=== PATIENT | female | born 1945 | race Caucasian/White ===

== ENCOUNTER 2017-10-18 15:09 | Inpatient (IN) | payer OTHER ==
[~2017-10-18] VITALS: Ht 160 cm; Wt 108.0 kg
[2017-10-18 16:49] LABS: ABSOLUTE BASOPHIL COUNT 0 /CUMM (0.0-0.2); ABSOLUTE EOSINOPHIL COUNT 0.1 /CUMM (0.0-0.7); ABSOLUTE GRANULOCYTE CT 6.4 /CUMM (1.4-6.5); ABSOLUTE MONOCYTE COUNT 0.7 /CUMM (0.10-0.60); BASOPHIL % 0.5 % (0.0-2.0); EOSINOPHIL % 0.9 % (0-5); GRANULOCYTE % 77.6 % (42.2-75.2); MEAN CORPUSCULAR HGB 20.6 PG (27.0-31.0); MEAN CORPUSCULAR VOLUME 68.7 FL (81.0-99.0); MEAN PLATELET VOLUME 8.2 FL (7.4-10.4); PLATELET COUNT 400 /CUMM (130-400); RBC DISTRIBUTION WIDTH 19.5 % (11.5-14.5); RED BLOOD CELL CT 2.68 /CUMM (4.20-5.40); WHITE BLOOD CELL COUNT 8.3 /CUMM (4.8-10.8)
[2017-10-18 16:56] LABS: HEMATOCRIT 18.4 % (37-47); PT 19.9 SEC (9.4-12.5)
--- NOTE | 2017-10-18 17:03 | ED GENERAL ADULT ---
History of Present Illness General Chief Complaint: General Adult Stated Complaint: SENT BY REED FOR EVAL, ? NEED FOR TRANSFUSION Source: patient, family, old records Exam Limitations: no limitations Vital Signs & Intake/Output Vital Signs & Intake/Output Vital Signs Date Time Temp Pulse Resp B/P B/P Pulse O2 O2 Flow FiO2 Mean Ox Delivery Rate 10/18 1728 Room Air 10/18 1515 97.7 90 18 141/76 99 Room Air Allergies Coded Allergies: NO KNOWN ALLERGIES (12/27/11) NKA PER ANTIBIOTIC ORDER SHEET - [facility] Reconcile Medications Calcium Carbonate/Vitamin D3 (Calcium 600+D Softgel) (Unknown Strength) CAPSULE (Unknown Dose) PO DAILY SUPPLEMENT (Reported) Erythromycin Base (Erythromycin) 5 MG/GRAM (0.5 %) OINT...G. 1 MARANDA OU Q30D DRY EYES (Reported) apply 1 cm ribbon into the lower conjunctival sac Metoprolol Succinate 50 MG TAB.ER.24H 1 TAB PO DAILY HEART/BP (Reported) Multiple Vitamin (Multivitamins) 1 EACH TABLET 1 TAB PO DAILY SUPPLEMENT ( Reported) Omeprazole 20 MG CAPSULE.DR 1 CAP PO DAILY GI (Reported) Risedronate Sodium (Actonel) 150 MG TABLET 1 TAB PO Q30D OSTEOPOROSIS ( Reported) on the same date with a full glass of water at least 30 minutes before first food or drink of the day; remain in an upright posi Simvastatin (Simvastatin*) 20 MG TABLET 1 TAB PO QPM CHOLESTEROL (Reported) Valsartan 160 MG TABLET 1 TAB PO DAILY HEART/BP (Reported) Warfarin Sodium 4 MG TABLET 1 TAB PO AD BLOOD THINNER (Reported) Warfarin Sodium (Coumadin) 2 MG TABLET 1 TAB PO QSAT BLOOD THINNER (Reported) Triage Note: PT TO ED FOR GENERALIZED WEAKNESS AND ESCOBEDO THAT BEGAN 5 DAYS AGO, SAW DR REED "WHO SAID I WAS ANEMIC AND SENT ME IN FOR A BLOOD TRANSFUSION", DENIES PALPITATIONS, CP. +SOB, ESCOBEDO, DIZZINESS. DENIES DARK/TARRY STOOLS OR TRUE BLOOD. Triage Nurses Notes Reviewed? yes HPI: Patient has been having increasing weakness and fatigue and dyspnea on exertion. Patient is on Coumadin for A. fib. Her INR was 1.85. Patient had outpatient blood work and it showed that she was acutely anemic. Patient was sent in for transfusion and evaluation. Patient denies any chest pain or palpitations. Patient denies any orthopnea. Patient states that she just feels very fatigued and short of breath with exertion. Past History Travel History Traveled to [place] past 21 day No Medical History Any Pertinent Medical History? see below for history Cardiovascular: AFIB Pneumonia Vaccine: 10/26/08 Influenza Vaccine: 05/28/10 Surgical History Surgical History: non-contributory Psychosocial History Who do you live with Family Services at Home None What is your primary language Uruguayan Tobacco Use: Quit >30 days ago ETOH Use: denies use Illicit Drug Use: denies illicit drug use Family History Hx Contributory? No Review of Systems Review of Systems Constitutional: Reports: see HPI, weakness. EENTM: Reports: no symptoms. Respiratory: Reports: see HPI, short of breath. Cardiovascular: Reports: no symptoms. GI: Reports: no symptoms. Genitourinary: Reports: no symptoms. Musculoskeletal: Reports: no symptoms. Skin: Reports: no symptoms. Neurological/Psychological: Reports: no symptoms. Hematologic/Endocrine: Reports: no symptoms. Immunologic/Allergic: Reports: no symptoms. All Other Systems: Reviewed and Negative Physical Exam Physical Exam General Appearance: well developed/nourished, alert, awake, anxious, mild distress Head: atraumatic, normal appearance Eyes: Bilateral: PERRL, EOMI, pale conjunctivae. Ears, Nose, Throat: normal pharynx, normal ENT inspection, hearing grossly normal Neck: normal inspection, supple, full range of motion Respiratory: normal breath sounds, chest non-tender, no respiratory distress, lungs clear Cardiovascular: normal peripheral pulses, irregularly irregular Gastrointestinal: normal bowel sounds, soft, non-tender, no organomegaly Rectal: LIGHT BROWN STOOL HEME NEGATIVE Extremities: normal inspection, normal capillary refill, normal range of motion Neurologic/Psych: no motor/sensory deficits, awake, alert, oriented x 3, normal mood/affect Skin: warm/dry, pallor Core Measures ACS in differential dx? No CVA/TIA Diagnosis: No Sepsis Present: No Sepsis Focused Exam Completed? No Progress Differential Diagnoses I considered the following diagnoses in my evaluation of the patient: [ Symptomatic anemia, GI bleed] Plan of Care: Orders Procedure Date/time Status Regular Diet 10/19 B Active ED Holding Orders 10/18 1837 Active Admit to inpatient 10/18 1837 Active Vital Signs 10/18 1837 Active Code Status 10/18 1837 Active XRY-PORTABLE CHEST XRAY 10/18 1745 Active EKG 10/18 1745 Active BLOOD PRODUCT PICKUP 10/18 1713 Active LEUKOCYTE POOR (PACKED CELLS) 10/18 1703 Active TROPONIN LEVEL 10/18 1529 Complete PROTHROMBIN TIME 10/18 1529 Complete COMPREHENSIVE METABOLIC PANEL 10/18 1529 Complete CBC WITHOUT DIFFERENTIAL 10/18 1529 Complete TYPE & SCREEN (NOT X-MATCH) 10/18 1529 Active Laboratory Tests 10/18/17 1638: Anion Gap 10, Estimated GFR 54 L, BUN/Creatinine Ratio 22.0, Glucose 94, Calcium 8.6, Total Bilirubin 0.3, AST 24, ALT 27, Alkaline Phosphatase 58, Troponin I < 0.01, Total Protein 6.1 L, Albumin 3.6, Globulin 2.5, Albumin/ Globulin Ratio 1.4, PT 19.9 H, INR 1.91 H, CBC w Diff NO MAN DIFF REQ, RBC 2.68 L, MCV 68.7 L, MCH 20.6 L, MCHC 30.0 L, RDW 19.5 H, MPV 8.2, Gran % 77.6 H, Lymphocytes % 12.6 L, Monocytes % 8.4, Eosinophils % 0.9, Basophils % 0.5, Absolute Granulocytes 6.4, Absolute Lymphocytes 1.0 L, Absolute Monocytes 0.7 H, Absolute Eosinophils 0.1, Absolute Basophils 0 Initial ED EKG: AFIB, nonspecific ST T wave chg Prior EKG: unchanged Comments: Case was discussed with Dr. Lal. Patient to be admitted to the hospital. Transfusion, clear liquid diet, hold Coumadin, plan for colonoscopy and endoscopy on Monday. Departure Departure Disposition: STILL A PATIENT Condition: Stable Clinical Impression Primary Impression: Symptomatic anemia Referrals: Reed Moses BUSTILLOS (PCP/Family) Departure Forms: Customer Survey General Discharge Information Admission Note Spoke With: Wendy Gould MD Documentation of Exam: Documentation of any treatments & extenuating circumstances including Concerns Regarding Discharge (functional status, medication knowledge or non-compliance, living conditions, etc.) that warrant an admission rather than observation: [ Clear liquid diet, transfusion, IV fluids, GI consultation, colonoscopy and endoscopy] Critical Care Note Critical Care Note Critical Care Time: non-applicable
[2017-10-18] MEDS ORDERED: METOPROLOL SUCC50 M2 PO (17:46)
[2017-10-18] MEDS ORDERED: VALSARTAN160 M1 PO (17:46)
[2017-10-18] MEDS ORDERED: SIMVASTATIN20 M2 PO (17:46)
[2017-10-18] MEDS ORDERED: COUMADIN4 M1 PO (17:47)
[2017-10-18] MEDS ORDERED: ACTONEL150 M1 PO (17:47)
[2017-10-18] MEDS ORDERED: ERYTHROMYCIN1 GM OPH (17:47)
[2017-10-18] MEDS ORDERED: CALCIUM 600+D1 EACH PO (17:48)
[2017-10-18] MEDS ORDERED: OMEPRAZOLE20 M2 PO (17:48)
[2017-10-18] MEDS ORDERED: ACETAMINOPHEN500 M4 PO (17:48)
[2017-10-18] MEDS ORDERED: MULTIVITAMINS1 EAC9 PO (17:49)
[2017-10-18] MEDS ORDERED: ERYTHROMYCIN1 GM OU (18:02)
[2017-10-18] MEDS ORDERED: COUMADIN2 M1 PO (18:03)
[2017-10-18] MEDS ORDERED: WARFARIN SODIUM4 M1 PO (18:03)
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
--- NOTE | 2017-10-18 18:44 | RADIOLOGY REPORT ---
EXAMINATION: XR PORTABLE CHEST CLINICAL INFORMATION: SOB. COMPARISON: Chest 12/30/2011. TECHNIQUE: Portable frontal view of the chest was obtained. FINDINGS: Both lungs are well-expanded and clear of acute process. The heart size is enlarged. Pulmonary vascularity is normal. No gross bony abnormality seen. IMPRESSION: Unremarkable chest exam.
--- NOTE | 2017-10-18 21:54 | Admission Certification ---
Admission Certification Certification Statement - As attending physician, I certify that at the time of - admission, based on clinical presentation, severity of - symptoms, need for further diagnostic testing and - therapeutic interventions, and risk of adverse outcomes - without in-hospital treatment, in my clinical assessment, - this patient requires an acute hospital stay for a minimum - of two nights or longer. I have also considered psychsocial - factors such as support system, advanced age, financial - issues, cognitive issues, and failed out-patient treatments, - past re-admission history, safety of patient, and lack of - compliance as applicable. Specific rationale supporting this admission is: Symptomatic anemia.
[2017-10-18 22:00] VITALS: BP 130/72
[2017-10-18 22:15] VITALS: BP 138/70
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
[2017-10-19 05:29] LABS: ABSOLUTE BASOPHIL COUNT 0 /CUMM (0.0-0.2); ABSOLUTE EOSINOPHIL COUNT 0.1 /CUMM (0.0-0.7); ABSOLUTE GRANULOCYTE CT 4.4 /CUMM (1.4-6.5); ABSOLUTE LYMPH COUNT 1.3 /CUMM (1.2-3.4); ABSOLUTE MONOCYTE COUNT 0.7 /CUMM (0.10-0.60); BASOPHIL % 0 % (0.0-2.0); EOSINOPHIL % 1.7 % (0-5); GRANULOCYTE % 67.1 % (42.2-75.2); MEAN CORPUSCULAR HGB CONC 31.8 G/DL (33.0-37.0); MEAN PLATELET VOLUME 8.2 FL (7.4-10.4); PLATELET COUNT 330 /CUMM (130-400); RBC DISTRIBUTION WIDTH 21.3 % (11.5-14.5); RED BLOOD CELL CT 3.34 /CUMM (4.20-5.40); WHITE BLOOD CELL COUNT 6.5 /CUMM (4.8-10.8)
[2017-10-19 05:38] VITALS: BP 134/68
[2017-10-19 05:39] LABS: HEMATOCRIT 24.8 % (37-47); MEAN CORPUSCULAR HGB 23.6 PG (27.0-31.0); MEAN CORPUSCULAR VOLUME 74.1 FL (81.0-99.0); PT 17.8 SEC (9.4-12.5)
--- NOTE | 2017-10-19 07:34 | PN- Housestaff ---
Imani Tom MD,[facility] 10/19/17 0733: Subjective Follow-up For: Symptomatic anemia Subjective: Patient visited today, was lying in bed comfortably in no acute distress, was alert and oriented. No fever or chills, no shortness of breathing, no chest pain, no other events. reported relative improvement in weakness after blood transfusion, had BM which was not bloody and no bleeding source was noted. Review of Systems Constitutional: Reports: see HPI. Objective Last 24 Hrs of Vital Signs/I&O Vital Signs Date Time Temp Pulse Resp B/P B/P Pulse O2 O2 Flow FiO2 Mean Ox Delivery Rate 10/19 1408 98.1 75 18 136/72 97 10/19 1103 75 134/68 10/19 1102 75 134/68 10/19 0538 98.3 75 16 134/68 95 Room Air 10/18 2215 99.1 78 18 138/70 98 Room Air 10/18 2200 98.4 76 18 130/72 98 Room Air 10/18 2002 98.0 85 18 141/73 94 Room Air 10/18 1728 Room Air 10/18 1515 97.7 90 18 141/76 99 Room Air Intake & Output 10/19 1600 10/19 0800 10/19 0000 Intake Total 720 240 680 Output Total Balance 720 240 680 Intake, IV 200 Intake, Oral 720 240 480 Number 0 Bowel Movements Patient 238 lb Weight Weight Reported by Patient Measurement Method Physical Exam General Appearance: Alert, Oriented X3, Cooperative, No Acute Distress Skin: No Significant Lesion Skin Temp/Moisture Exam: Warm/Dry Sepsis Skin Exam (color): Normal for Ethnicity HEENT: Atraumatic, EOMI, Mucous Membr. moist/pink Cardiovascular: Normal S1, Normal S2, Irreg irreg Lungs: Clear to Auscultation Abdomen: Soft, No Tenderness Neurological: Normal Speech, Strength at 5/5 X4 Ext Extremities: +1-+2 edema Current Medications: Current Medications Sig/Al Start time Last Medication Dose Route Stop Time Status Admin Acetaminophen 650 MG Q6P PRN 10/18 2199 AC PO Atorvastatin Calcium 10 MG 1700 10/18 2214 AC 10/18 PO 2304 Erythromycin 1 MARANDA Q30D 10/19 0900 CAN OPH Ferrous Sulfate 325 MG BID 10/19 1000 AC PO Hydrocodone Bitart/ 1 TAB Q8P PRN 02/21 2200 AC Acetaminophen PO Losartan Potassium 50 MG DAILY 10/19 1000 AC 10/19 PO 1103 Metoprolol Succinate 50 MG DAILY 10/19 1000 AC 10/19 PO 1102 Oxycodone/ 2 TAB Q8P PRN 10/18 2200 AC Acetaminophen PO Pantoprazole Sodium 40 MG DAILY 10/18 2215 AC 10/19 IV 1100 Patient Medication 1 ED ONE ONE 10/19 1130 DC Teaching ED 10/19 1131 Polyethylene Glycol 0.5 GAL ONCE ONE 10/20 0500 AC PO 10/20 0501 Polyethylene Glycol 0.5 GAL ONCE ONE 10/19 1800 AC PO 10/19 1801 Last 24 Hrs of Lab/Mamadou Results Last 24 Hrs of Labs/Mics: Laboratory Tests 10/19/17 0515: Anion Gap 8, Estimated GFR > 60, BUN/Creatinine Ratio 17.8, Troponin I < 0.01, PT 17.8 H, INR 1.70 H, CBC w Diff NO MAN DIFF REQ, RBC 3.34 L, MCV 74.1 L, MCH 23.6 L, MCHC 31.8 L, RDW 21.3 H, MPV 8.2, Gran % 67.1, Lymphocytes % 20.3 L, Monocytes % 10.9 H, Eosinophils % 1.7, Basophils % 0, Absolute Granulocytes 4.4, Absolute Lymphocytes 1.3, Absolute Monocytes 0.7 H, Absolute Eosinophils 0.1, Absolute Basophils 0, Retic Count 1.38 10/18/17 2315: Troponin I < 0.01 10/18/17 1638: Anion Gap 10, Estimated GFR 54 L, BUN/Creatinine Ratio 22.0, Glucose 94, Calcium 8.6, Iron 13 L, TIBC 437, Ferritin 6.1 L, Total Bilirubin 0.3, AST 24, ALT 27, Alkaline Phosphatase 58, Lactate Dehydrogenase 451, Troponin I < 0.01, Total Protein 6.1 L, Albumin 3.6, Globulin 2.5, Albumin/Globulin Ratio 1.4, Vitamin B12 562, Folate > 20.0 H, PT 19.9 H, INR 1.91 H, CBC w Diff NO MAN DIFF REQ, RBC 2.68 L, MCV 68.7 L, MCH 20.6 L, MCHC 30.0 L, RDW 19.5 H, MPV 8.2, Gran % 77.6 H, Lymphocytes % 12.6 L, Monocytes % 8.4, Eosinophils % 0.9, Basophils % 0.5, Absolute Granulocytes 6.4, Absolute Lymphocytes 1.0 L, Absolute Monocytes 0.7 H, Absolute Eosinophils 0.1, Absolute Basophils 0 Assessment/Plan Assessment: 72 years old female referred from PCP office for progressive weakness and fatigue over the past 5 days Associated with exertional shortness of breath, mild dizziness and bilateral lower extremity swelling PMH: hypertension, hyperlipidemia, obesity, oseoporosis, remote hx DVT RLE with IVC placement 02/10/05, afib on Coumadin since 2009, B/L LE varicose vein stripping, DJD post B/L total knee arthroplasty 2011 Vital signs at admission: Blood pressure 141/73, pulse 85, respirations 18, temperature 90.8, pulse of 24 to room air Labs at admission: WBC 8.3, hemoglobin 5.5, hematocrit 18.4, CV 60.7, platelets 400, PT 19.9 INR 1.91, sodium 138, potassium 4.9, BUN 22, creatinine 1, glucose 94, AST 24, AST 27 Imaging at admission: Chest x-ray unremarkable Doppler of LE: Normal triplex scan without evidence of deep venous thrombosis involving the lower extremities. Severe anemia: The patient was found to have a hemoglobin of 5.5, guaiac was negative Patient has family history of colon cancer in her sister, in addition to her she has an history of colon polyp. She was seen by gastroenterology in the ED, will perform EGD on Monday and Clear liquids for now - Admit to general medicine floor - Colon prep on and start nothing by mouth at midnight for EGD - CT scan to evaluate for retroperit bleeding per GI - continue PPI - EGD tomorrow History of A. fib on Coumadin: We'll hold Coumadin for now as per GI recommendation INR today 1.7 Serial Troponin and EKG - follow cardioloy Full code DVT prophylaxis with ALPS clear liq diet Problem List: 1. Symptomatic anemia 2. Afib Pain Ratin Pain Location: none Pain Goal: Pain 4 or less Pain Plan: continue current plan Tomorrow's Labs & Rationales: CBc BEP Cici Alvarado 10/19/17 1300: Attending MD Review Statement Attending Statement Attending MD Statement: examined this patient, discuss w/resident/PA/UTILITY WORKER FORGE, agreed w/resident/PA/UTILITY WORKER FORGE, discussed with family, reviewed EMR data (avail), discussed with nursing, discussed with case mgmt, reviewed images, amended to note Attending Assessment/Plan: Assessment and plan: 1. Symptomatic anemia 2. Acute on chronic microcytic anemia 3. Afib on coumadin 4. Subtherapeutic INR 5. CKD stable - s/p transfused 2 units PRBC - f/u labs - Hold coumadin and check INR in AM - Clear liquids for now, plan for EGD/ colonoscopy on 10/20. - Continue PPI, f/u GI. - Cardio consult (Dr. Valenzuela) as coumadin being held for Afib - antihypertensives as bp allows. DVT ppx Alps. Full code.
--- NOTE | 2017-10-19 10:27 | CT SCAN REPORT ---
EXAMINATION: CT ABDOMEN AND PELVIS WITHOUT CONTRAST CLINICAL INFORMATION: Symptomatic anemia negative guaiac stool. Rule out retroperitoneal bleed. COMPARISON: There are no prior studies for comparison. TECHNIQUE: Multidetector volumetric imaging was performed from the superior aspect of the liver through the pubic symphysis. Sagittal and coronal reformatted images were obtained on the technologist's workstation. DLP: 762.55 mGy-cm FINDINGS: No free intraperitoneal fluid collections are present. LUNG BASES: There are small bilateral pleural effusions.. LIVER, GALLBLADDER, AND BILIARY TREE: The liver is normal in size, shape, and attenuation. No focal hepatic lesion or biliary ductal dilatation is present. The gallbladder contains a 2 mm calcified gallstone within the gallbladder fundus, there is no evidence of gallbladder wall thickening, or obvious pericholecystic inflammatory changes. PANCREAS: Unremarkable. SPLEEN: Unremarkable. ADRENAL GLANDS: Unremarkable. KIDNEYS AND URETERS: The kidneys are normal in size, shape, and attenuation. No hydronephrosis, hydroureter, or calculi seen. No perinephric stranding. BLADDER: Unremarkable. GASTROINTESTINAL TRACT: There is a prominent hiatal hernia which extends at least 7 cm above the diaphragm, of note the entire hiatal hernia is incompletely included in this study. The small and large bowel are unremarkable. The appendix is unremarkable. ABDOMINAL WALL: No significant hernia is appreciated. LYMPH NODES: No lymphadenopathy.. VASCULAR: An IVC filter is present. Heavy atherosclerotic plaque is noted, the abdominal aorta is normal in caliber.. PELVIC VISCERA: Uterus is normal, no adnexal mass lesions are noted.. OSSEOUS STRUCTURES: Severe multilevel degenerative changes are present in the lower thoracic and lumbar spine. No aggressive lytic or sclerotic lesions are noted.. IMPRESSION: 1. No intraperitoneal fluid collection is present. 2. Small bilateral pleural effusions are incidentally noted. 3. Tiny 2 mm gallstone present in the gallbladder fundus. 4. Prominent hiatal hernia.
--- NOTE | 2017-10-19 10:34 | ULTRASOUND REPORT ---
EXAMINATION: US TRIPLEX OF LOWER EXTREMITIES, BILATERAL CLINICAL INFORMATION: Bilateral lower extremity pain and swelling. COMPARISON: There are no prior studies for comparison. TECHNIQUE: Color-flow triplex imaging with spectral analysis and compression Doppler were performed on the lower extremities. FINDINGS: Respiratory variation, normal compression and augmented flow are noted throughout the lower extremities. The visualized common femoral vein, superficial femoral vein, profunda femoral vein, show no evidence of deep venous thrombosis. The popliteal vein and midcalf peroneal and posterior tibial venous segments of both left and right lower extremities are present visualized due to edema. There is no popliteal cyst. IMPRESSION: Normal triplex scan without evidence of deep venous thrombosis involving the lower extremities.
[2017-10-19 14:08] VITALS: BP 136/72
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
[2017-10-19 21:14] VITALS: BP 122/74
[2017-10-20 06:25] VITALS: BP 124/78
[2017-10-20 08:14] LABS: PT 17.5 SEC (9.4-12.5)
[2017-10-20 08:16] LABS: ABSOLUTE BASOPHIL COUNT 0 /CUMM (0.0-0.2); ABSOLUTE EOSINOPHIL COUNT 0.2 /CUMM (0.0-0.7); ABSOLUTE GRANULOCYTE CT 6.2 /CUMM (1.4-6.5); ABSOLUTE LYMPH COUNT 0.6 /CUMM (1.2-3.4); ABSOLUTE MONOCYTE COUNT 0.8 /CUMM (0.10-0.60); BASOPHIL % 0 % (0.0-2.0); GRANULOCYTE % 79.9 % (42.2-75.2); HEMATOCRIT 26.7 % (37-47); MEAN CORPUSCULAR HGB 24.2 PG (27.0-31.0); MEAN CORPUSCULAR HGB CONC 32.9 G/DL (33.0-37.0); MEAN CORPUSCULAR VOLUME 73.6 FL (81.0-99.0); MEAN PLATELET VOLUME 8.3 FL (7.4-10.4); RBC DISTRIBUTION WIDTH 22.2 % (11.5-14.5); RED BLOOD CELL CT 3.63 /CUMM (4.20-5.40); WHITE BLOOD CELL COUNT 7.8 /CUMM (4.8-10.8)
[2017-10-20 09:32] LABS: PLATELET COUNT 350 /CUMM (130-400)
--- NOTE | 2017-10-20 11:06 | PN- Housestaff ---
Iamni Tom MD,[facility] 10/20/17 1106: Subjective Follow-up For: Symptomatic anemia Subjective: Patient visited today, was lying sitting at bedside comfortably in no acute distress, was alert and oriented. Daughter present at the bedside. Had: Preparation for colonoscopy overnight, bowel movement almost clear, GI consulted and will have scope at 12:30 PM. No fever or chills, no shortness of breathing, no chest pain, no other events. patient requested to be discharged after scope. planned to restart warfarin after procedure and will re-evalaute for discharge after scope as she and daughter requested if stable. Review of Systems Constitutional: Reports: see HPI. Objective Last 24 Hrs of Vital Signs/I&O Vital Signs Date Time Temp Pulse Resp B/P B/P Pulse O2 O2 Flow FiO2 Mean Ox Delivery Rate 10/20 926 70 144/78 10/20 926 70 144/78 10/20 0625 98.2 77 18 124/78 96 Room Air 10/19 2114 98.5 79 18 122/74 96 10/19 1408 98.1 75 18 136/72 97 Intake & Output 10/20 1600 10/20 0800 10/20 0000 Intake Total 1999 1999 Output Total 2 Balance 1997 1999 Intake, Oral 1999 1999 Number 2 3 Bowel Movements Output, Urine 2 Physical Exam General Appearance: Alert, Oriented X3, Cooperative, No Acute Distress Skin: No Significant Lesion Skin Temp/Moisture Exam: Warm/Dry Sepsis Skin Exam (color): Normal for Ethnicity HEENT: Atraumatic, EOMI, Mucous Membr. moist/pink Cardiovascular: Normal S1, Normal S2, irregular, irregular Lungs: Normal Air Movement Abdomen: Soft, No Tenderness Neurological: Normal Speech, Strength at 5/5 X4 Ext Extremities: No Edema Current Medications: Current Medications Sig/Al Start time Last Medication Dose Route Stop Time Status Admin Acetaminophen 650 MG Q6P PRN 10/18 2199 AC PO Atorvastatin Calcium 10 MG 1700 10/18 2215 AC 10/19 PO 1753 Ferrous Sulfate 325 MG BID 10/19 1000 AC 10/20 PO 926 Hydrocodone Bitart/ 1 TAB Q8P PRN 10/18 2199 AC Acetaminophen PO Losartan Potassium 50 MG DAILY 10/19 1000 AC 10/20 PO 926 Metoprolol Succinate 50 MG DAILY 10/19 1000 AC 10/20 PO 926 Oxycodone/ 2 TAB Q8P PRN 10/18 220 AC Acetaminophen PO Pantoprazole Sodium 40 MG DAILY 10/18 2215 AC 10/20 IV 0927 Polyethylene Glycol 0.5 GAL ONCE ONE 10/20 0500 DC 10/20 PO 10/20 0501 0501 Polyethylene Glycol 0.5 GAL ONCE ONE 10/19 1800 DC 10/19 PO 10/19 1801 1755 Sodium Chloride 1,000 ML Q13H 10/20 0945 AC 10/20 IV 1011 Last 24 Hrs of Lab/Mamadou Results Last 24 Hrs of Labs/Mics: Laboratory Tests 10/20/17 0728: Anion Gap 13, Estimated GFR > 60, BUN/Creatinine Ratio 14.4, PT 17.5 H, INR 1.68 H, CBC w Diff NO MAN DIFF REQ, RBC 3.63 L, MCV 73.6 L, MCH 24.2 L, MCHC 32.9 L, RDW 22.2 H, MPV 8.3, Gran % 79.9 H, Lymphocytes % 7.6 L, Monocytes % 10.5 H, Eosinophils % 2.0, Basophils % 0, Absolute Granulocytes 6.2, Absolute Lymphocytes 0.6 L, Absolute Monocytes 0.8 H, Absolute Eosinophils 0.2, Absolute Basophils 0 Assessment/Plan Assessment: 72 years old female referred from PCP office for progressive weakness and fatigue over the past 5 days Associated with exertional shortness of breath, mild dizziness and bilateral lower extremity swelling PMH: hypertension, hyperlipidemia, obesity, oseoporosis, remote hx DVT RLE with IVC placement 02/10/05, afib on Coumadin since 2009, B/L LE varicose vein stripping, DJD post B/L total knee arthroplasty 2011 Vital signs at admission: Blood pressure 141/73, pulse 85, respirations 18, temperature 90.8, pulse of 24 to room air Labs at admission: WBC 8.3, hemoglobin 5.5, hematocrit 18.4, CV 60.7, platelets 400, PT 19.9 INR 1.91, sodium 138, potassium 4.9, BUN 22, creatinine 1, glucose 94, AST 24, AST 27 Imaging at admission: Chest x-ray unremarkable Doppler of LE: Normal triplex scan without evidence of deep venous thrombosis involving the lower extremities. Severe anemia: The patient was found to have a hemoglobin of 5.5, guaiac was negative Patient has family history of colon cancer in her sister, in addition to her she has an history of colon polyp. CT scan of the abdomen was done to rule out retro-pert hematoma: 1. No intraperitoneal fluid collection is present. 2. Small bilateral pleural effusions are incidentally noted. 3. Tiny 2 mm gallstone present in the gallbladder fundus. 4. Prominent hiatal hernia. Patient recieved preparation for scope. - continue PPI -GI scope today - consider discharger if stable History of A. fib on Coumadin: We'll hold Coumadin for now as per GI recommendation INR today 1.68 Serial Troponin and EKG - follow cardioloy - consider restart Coumadin after procedure if stable Full code DVT prophylaxis with ALPS clear liq diet Consider discharge if stable after procedure Problem List: 1. Afib 2. Symptomatic anemia Pain Ratin Pain Location: None Pain Goal: Pain 4 or less Pain Plan: Continue current plan Tomorrow's Labs & Rationales: CBC BEP Cici Alvarado 10/20/17 1143: Attending MD Review Statement Attending Statement Attending MD Statement: examined this patient, discuss w/resident/PA/IT ASSOCIATE, agreed w/resident/PA/IT ASSOCIATE, discussed with family, reviewed EMR data (avail), discussed with nursing, discussed with case mgmt, reviewed images, amended to note Attending Assessment/Plan: Patient denies any new complaints. Patient had multiple stools. Finished her golytely. Assessment and plan: 1. Symptomatic anemia 2. Acute on chronic microcytic anemia 3. Afib on coumadin 4. Subtherapeutic INR 5. CKD stable - s/p transfused 3 units PRBC - f/u labs - Held coumadin and check INR in AM - NPO plan for EGD/ colonoscopy today - Continue PPI, f/u GI. - Cardio consult (Dr. Valenzuela) as coumadin being held for Afib - antihypertensives as bp allows.
--- NOTE | 2017-10-20 14:18 | PN- Cardiology ---
Subjective Subjective: Feels well with no new complaints. Objective Vital Signs and I&Os Vital Signs Date Time Temp Pulse Resp B/P B/P Pulse O2 O2 Flow FiO2 Mean Ox Delivery Rate 10/20 926 70 144/78 10/20 926 70 144/78 10/20 0625 98.2 77 18 124/78 96 Room Air 10/19 2113 98.5 79 18 122/74 96 Intake & Output 10/20 1600 10/20 0800 10/20 0000 10/19 1600 10/19 0800 10/19 0000 Intake Total 1999 1999 720 240 680 Output Total 2 Balance 1997 1999 720 240 680 Intake, IV 200 Intake, Oral 1999 1999 720 240 480 Number 2 3 0 Bowel Movements Output, Urine 2 Patient 238 lb Weight Weight Reported by Patient Measurement Method Physical Exam: General: no apparent distress. Alert. Eyes: No obvious scleral icterus. HEENT: No jugular venous distention or abnormal jugular venous pulsations. Cardiovascular: Normal intensity S1/S2. Irregular Respiratory: Lungs clear to auscultation bilaterally. Abdomen: Soft, nontender with no guarding or rebound tenderness. Musculoskeletal: No clubbing or cyanosis noted; 1+ lower extremity edema Skin: Stasis changes noted Neurologic: No gross focal deficits noted. Current Medications: Current Medications Sig/Al Start time Last Medication Dose Route Stop Time Status Admin Acetaminophen 650 MG Q6P PRN 10/18 2199 AC PO Atorvastatin Calcium 10 MG 1700 10/18 221 AC 10/19 PO 1753 Ferrous Sulfate 325 MG BID 10/19 1000 AC 10/20 PO 0927 Hydrocodone Bitart/ 1 TAB Q8P PRN 10/18 2199 AC Acetaminophen PO Losartan Potassium 50 MG DAILY 10/19 1000 AC 10/20 PO 0927 Metoprolol Succinate 50 MG DAILY 10/19 1000 AC 10/20 PO 0927 Oxycodone/ 2 TAB Q8P PRN 10/18 2199 AC Acetaminophen PO Pantoprazole Sodium 40 MG DAILY 10/18 2214 AC 10/20 IV 0927 Polyethylene Glycol 0.5 GAL ONCE ONE 10/20 0500 DC 10/20 PO 10/20 0501 0501 Polyethylene Glycol 0.5 GAL ONCE ONE 10/19 1800 DC 10/19 PO 10/19 1801 1755 Sodium Chloride 1,000 ML Q13H 10/20 0945 AC 10/20 IV 1011 Results Last 48 Hrs of Labs/Mics: Laboratory Tests 10/20/17 0728: Anion Gap 13, Estimated GFR > 60, BUN/Creatinine Ratio 14.4, PT 17.5 H, INR 1.68 H, CBC w Diff NO MAN DIFF REQ, RBC 3.63 L, MCV 73.6 L, MCH 24.2 L, MCHC 32.9 L, RDW 22.2 H, MPV 8.3, Gran % 79.9 H, Lymphocytes % 7.6 L, Monocytes % 10.5 H, Eosinophils % 2.0, Basophils % 0, Absolute Granulocytes 6.2, Absolute Lymphocytes 0.6 L, Absolute Monocytes 0.8 H, Absolute Eosinophils 0.2, Absolute Basophils 0 10/19/17 0515: Anion Gap 8, Estimated GFR > 60, BUN/Creatinine Ratio 17.8, Troponin I < 0.01, PT 17.8 H, INR 1.70 H, CBC w Diff NO MAN DIFF REQ, RBC 3.34 L, MCV 74.1 L, MCH 23.6 L, MCHC 31.8 L, RDW 21.3 H, MPV 8.2, Gran % 67.1, Lymphocytes % 20.3 L, Monocytes % 10.9 H, Eosinophils % 1.7, Basophils % 0, Absolute Granulocytes 4.4, Absolute Lymphocytes 1.3, Absolute Monocytes 0.7 H, Absolute Eosinophils 0.1, Absolute Basophils 0, Retic Count 1.38 10/18/17 2315: Troponin I < 0.01 10/18/17 1638: Anion Gap 10, Estimated GFR 54 L, BUN/Creatinine Ratio 22.0, Glucose 94, Calcium 8.6, Iron 13 L, TIBC 437, Ferritin 6.1 L, Total Bilirubin 0.3, AST 24, ALT 27, Alkaline Phosphatase 58, Lactate Dehydrogenase 451, Troponin I < 0.01, Total Protein 6.1 L, Albumin 3.6, Globulin 2.5, Albumin/Globulin Ratio 1.4, Vitamin B12 562, Folate > 20.0 H, PT 19.9 H, INR 1.91 H, CBC w Diff NO MAN DIFF REQ, RBC 2.68 L, MCV 68.7 L, MCH 20.6 L, MCHC 30.0 L, RDW 19.5 H, MPV 8.2, Gran % 77.6 H, Lymphocytes % 12.6 L, Monocytes % 8.4, Eosinophils % 0.9, Basophils % 0.5, Absolute Granulocytes 6.4, Absolute Lymphocytes 1.0 L, Absolute Monocytes 0.7 H, Absolute Eosinophils 0.1, Absolute Basophils 0 Assessment/Plan Assessment/Plan 1. Symptomatic anemia requiring transfusion 2. Concern for possible GI bleed 3. History of paroxysmal atrial fibrillation on Coumadin 4. History of venous insufficiency 5. History of prior pulmonary embolism with reported IVC filter 6. History of hypertension Feels well with no new complaints. Pre-hospital symptoms improved status post transfusion. She remains hemodynamically stable. Resume Coumadin when okay by GI. Jono Ortiz MD [facility] Continue telemetry? Not applicable
[2017-10-20] MEDS ORDERED: FERROUS SULFAT325 M2 PO ×2 (14:42→16:05)
--- NOTE | 2017-10-20 15:01 | Patient Discharge Instructions ---
Discharge Instructions General Discharge Information You were seen/treated for: Symptomatic anemia You had these procedures: GI endoscopy Watch for these problems: Severe weakness, dizziness, chest pain, palpitation, change in bowel movement or worsening of any other problems Special Instructions: Please follow with your PCP within one week of discharge. Please follow-up with your perinatal coordinator within 1 week of discharge regarding results of your endoscopy. Please come back to hospital if symptoms worsen. Please follow with your translator/interpreter within 1 week of discharge regarding continuation of Coumadin for atrial fibrillation. Diet Continue normal diet: No Recommended Diet: Heart Healthy Activity Full Activity/No Limits: No Activity Self Limited: Yes Acute Coronary Syndrome Inclusion Criteria At DC or during hospital stay patient has or had the following: ACS DIAGNOSIS No Discharge Core Measures Meds if any: Prescribed or Continued at Discharge Meds if any: NOT Prescribed or Continued at Discharge Congestive Heart Failure Inclusion Criteria At DC or during hospital stay patient has or had the following: CHF DIAGNOSIS No Discharge Core Measures Meds if any: Prescribed or Continued at Discharge Meds if any: NOT Prescribed or Continued at Discharge Cerebrovascular accident Inclusion Criteria At DC or during hospital stay patient has or had the following: CVA/TIA Diagnosis No Discharge Core Measures Meds if any: Prescribed or Continued at Discharge Meds if any: NOT Prescribed or Continued at Discharge Venous thromboembolism Inclusion Criteria VTE Diagnosis No VTE Type NONE VTE Confirmed by (Test) NONE Discharge Core Measures - Per Current guidelines, there needs to be overlap - treatment for the first 5 days of Warfarin therapy. - If discharged on Warfarin prior to 5 days of - overlap therapy, the patient will need to be - assessed for post discharge needs including - *Post discharge parental anticoagulation - *Warfarin and/or parental anticoagulation education - *Follow up date to check INR post discharge At least 5 days overlap therapy as Inpatient No Meds if any: Prescribed or Continued at Discharge Note: Overlap Therapy is Warfarin and Anticoagulant Meds if any: NOT Prescribed or Continued at Discharge
--- NOTE | 2017-10-20 15:16 | Proc Note Endoscopy ---
Endoscopy Procedure Procedure Date: 10/20/17 Procedure Type: EGD w/biopsy (preceding colonoscopy) Train Gateman: Alexander Angel M.D. ASA Classification: III Indications: Iron deficiency anemia Instrument: diagnostic gastroscope Meds Received: HERLINDA Patient's Tolerance: good Complications: none Extent Reached: second part of duodenum Procedure: The patient signed informed consent for EGD and colonoscopy, and was medicated. Lidocaine pharyngeal spray was administered. Pulse oximetry, blood pressure and cardiac monitoring were performed continuously throughout the procedure. The Olympus high-definition gastroscope was inserted into the mouth and advanced to the duodenum. Retroflexion was performed within the stomach to examine the cardia. Careful examination was performed. Findings: Within the esophagus there were prominent blue submucosal vessels suggestive of small varices. The mucosa was intact throughout. The caliber and contour and the esophagus was normal. The GE junction was at 30 cm at which site was a ring , and distal to which was a large hiatal hernia extending to 40 cm. There were no José erosions. Stomach had normal distention, and active peristalsis. The mucosa and folds were normal throughout except for numerous small polyps, in the hernia sac, fundus and body. The pyloric channel was normal. Within the duodenal bulb was nodularity suggestive of gastric metaplasia, and this was biopsied. The mucosa and folds of the duodenal sweep were normal, and 4 biopsies were obtained in this area. Impression: * Probable small esophageal varices * Hiatal hernia * Gastric polyps * Duodenal nodularity; probable gastric metaplasia * No gross enteropathy; biopsies obtained Recommendations: * Await pathology * Continue maintenance antisecretory therapy CC: Derek BUSTILLOS,[facility]
--- NOTE | 2017-10-20 15:20 | Proc Note Colonoscopy ---
Colonoscopy Procedure Procedure Date: 10/20/17 Procedure Type: colonoscopy (following EGD) Work Over Rig Operator: Alexander Angel M.D. ASA Classification: III Indications: Iron deficiency anemia Instrument (Colonoscope): single channel Meds Received: MAC Patient's Tolerance: good Complications: none Extent Reached: cecum Prep: fair Procedure: Following the initial EGD, the patient was placed in the Davidson position, and medicated. Examination of the rectum was normal. The Olympus high-definition variable stiffness colonoscope was inserted through the anus and advanced to the cecum, identified by the appendiceal orifice and ileocecal valve. Retroflexion was performed in order to examine the rectum. Careful examination was performed. There was adequate withdrawal time. Findings: The rectum was normal. There was sigmoid diverticulosis. Diverticula also were seen extending from left colon and right colon. Otherwise, the mucosa, folds and vasculature of the colon were normal. No polyps were seen although small polyps may been obscured. There were no evident vascular lesions. Impression: * Diverticulosis Recommendations: * Resume regular/heart healthy diet * Resumption of anticoagulation as per cardiology * Outpatient capsule endoscopy * Check CBC daily while hospitalized, and maintain hemoglobin at greater than 8 Thank you very much for allowing our participation in this patient's care. GI will not follow the patient at this point in the hospital, but we will arrange for outpatient follow-up in our office. Please call or reconsult as needed during this hospitalization. CC: Herman BUSTILLOS,Leonardo Whittaker; Derek BUSTILLOS,[facility]
[2017-10-20 15:28] VITALS: BP 112/62
[2017-10-20] MEDS ORDERED: OMEPRAZOLE20 M3 PO (16:05)
--- NOTE | 2017-10-20 17:23 | Discharge Summary ---
Hospital Course Allergies: Coded Allergies: NO KNOWN ALLERGIES (12/27/11) NKA PER ANTIBIOTIC ORDER SHEET - [facility] Discharge Instructions Medications at Discharge Discharge Medications: Stop taking the following medications: Omeprazole (Omeprazole) 20 MG CAPSULE. ORAL DAILY Continue taking these medications: Valsartan (Valsartan) 160 MG TABLET 1 Tablet ORAL DAILY Qty = 90 Comments: [place]AN GIVEN IN HOSP 10/20/17 AT 9:27 AM Simvastatin (Simvastatin*) 20 MG TABLET 1 Tablet ORAL Every night Qty = 90 Comments: Last Taken:LIPITOR GIVEN 10/20/17 Time:16:16 PM Metoprolol Succinate (Metoprolol Succinate) 50 MG TAB.ER.24H 1 Tablet ORAL DAILY Qty = 90 Comments: Last Taken:10/20/17 Time:9:27 AM Risedronate Sodium (Actonel) 150 MG TABLET 1 Tablet ORAL ONCE A MONTH Qty = 1 Instructions: on the same date with a full glass of water at least 30 minutes before first food or drink of the day; remain in an upright posi Comments: NOT GIVEN IN HOSPITAL Calcium Carbonate/Vitamin D3 (Calcium 600+D Softgel) (Unknown Strength) CAPSULE Unknown Dose ORAL DAILY Comments: NOT GIVEN IN HOSPITAL Multiple Vitamin (Multivitamins) 1 EACH TABLET 1 Tablet ORAL DAILY Comments: NOT GIVEN IN HOSPITAL Erythromycin Base (Erythromycin) 5 MG/GRAM (0.5 %) OINT...G. 1 Application Both Eyes ONCE A MONTH Instructions: apply 1 cm ribbon into the lower conjunctival sac Comments: NOT GIVEN IN HOSPITAL Warfarin Sodium (Warfarin Sodium) 4 MG TABLET 1 Tablet ORAL As Directed Warfarin Sodium (Coumadin) 2 MG TABLET 1 Tablet ORAL EVERY MONDAY Comments: NOT GIVEN IN HOSPITAL Start taking the following new medications: Ferrous Sulfate (Ferrous Sulfate) 325 MG (65 MG IRON) TABLET. 325 Milligram ORAL TWICE DAILY Qty = 60 No Refills Instructions: . Comments: Last Taken:10/20/17 Time:9:27 AM Omeprazole (Omeprazole) 20 MG TABLET. 1 Tablet ORAL TWICE DAILY Qty = 60 No Refills Comments: MEDICATION GIVEN IV IN HOSPITAL
== END 2017-10-20 17:00 | DRG 812 ==
LOC: ERH 15:09 → ERHI 18:38 → 2NB 18:38 → ENRESERV 19:04 → ENTRNSPT 19:58 → EDTRNSPTSTS 20:00 → EDTRNSPT 20:00 → 2NB 20:36 → CMPTRNSPT 21:19 → 2NB 10-19 09:03 → ENPENDDIS 10-20 16:14 → ENTRNSPT 10-20 16:39 → EDTRNSPT 10-20 16:54 → EDTRNSPTSTS 10-20 16:54 → 2NB 10-20 17:00 → CMPTRNSPT 10-20 17:30
PROVIDERS: Internal Medicine Hematology & Oncology; Physician Assistant Medical; Radiology Vascular & Interventional Radiology
PROC: 30233N1 Transfusion of Nonautologous Red Blood Cells into Peripheral Vein, Percutaneous Approach (ICD-10-PCS; 2017-10-18)
PROC: 0DB98ZX Excision of Duodenum, Via Natural or Artificial Opening Endoscopic, Diagnostic (ICD-10-PCS; principal; 2017-10-20)
PROC: 0DJD8ZZ Inspection of Lower Intestinal Tract, Via Natural or Artificial Opening Endoscopic (ICD-10-PCS; 2017-10-20)
DX: D50.8 Other iron deficiency anemias (principal); Z68.41 Body mass index [BMI] 40.0-44.9, adult; I48.0 Paroxysmal atrial fibrillation; N18.3 Chronic kidney disease, stage 3 (moderate); I12.9 Hypertensive chronic kidney disease with stage 1 through stage 4 chronic kidney disease, or unspecified chronic kidney disease; K31.7 Polyp of stomach and duodenum; Z79.01 Long term (current) use of anticoagulants; E66.9 Obesity, unspecified; I87.2 Venous insufficiency (chronic) (peripheral); K57.30 Diverticulosis of large intestine without perforation or abscess without bleeding; E78.5 Hyperlipidemia, unspecified; K21.9 Gastro-esophageal reflux disease without esophagitis; M81.0 Age-related osteoporosis without current pathological fracture; K44.9 Diaphragmatic hernia without obstruction or gangrene; Z86.010 Personal history of colon polyps; Z86.718 Personal history of other venous thrombosis and embolism; Z86.711 Personal history of pulmonary embolism
CPT/HCPCS: 2NBSP; 36592; 71045; 74176; 82436; 86920; 93005; 93010; 93970; 97116-GO; 97161-GP; P9016